=== PATIENT | female | born 1985 | race Caucasian/White ===

== ENCOUNTER 2018-01-26 17:51 | Emergency (ER) | payer OTHER ==
[~2018-01-26] VITALS: Ht 165.1 cm; Wt 88.5 kg
[~2018-01-26 17:51] MED LIST: ALPR1 PO; CITA20 PO; CLON.5 PO; CYCL10 PO; DICL75ER PO; DULO30 PO; ESCI10 PO; ESTR2 PO; IBUHYD PO; IBUP600 PO; IBUP800 PO; Mobic15 MG PO; NAPR500 PO; Naprosyn500 MG PO; Neurontin 300300 MG PO; Norco 5-325 Ta1 EACH PO; OMEP40CA12 PO; Omeprazole20 M1; Omeprazole20 M1 PO; PROM25 PO; Percocet 10-321 EACH PO; Percocet 5-3251 EACH PO; Prednisone20 MG PO; Robaxin-750750 MG PO; Roxicodone5 MG PO; SIME80CH PO; Ultram50 MG PO; Vicoprofen 2001 EACH PO
[2018-01-26] MEDS ORDERED: BENZ100A PO (18:28)
[2018-01-26] MEDS ORDERED: Tylenol W/Code120 ML PO (18:28)
== END 2018-01-26 18:33 | disposition home or self-care (01) ==
LOC: ER 17:51
DX: J06.9 Acute upper respiratory infection, unspecified (principal); Z79.899 Other long term (current) drug therapy
CPT/HCPCS: 99283